=== PATIENT | male | born 2005 | race Caucasian/White ===

== ENCOUNTER 2025-08-01 15:56 | Emergency (ER) | payer MEDICAID ==
[~2025-08-01] VITALS: Ht 177.8 cm; Wt 101.0 kg
[2025-08-01] MEDS: ALBUTEROL SULF 2.5 MG/0.5ML(0.5%) NEB SOLN NEB ONE (20:53)
[2025-08-01] MEDS: KETOROLAC TROMETH 30 MG/ML 1ML VIAL IM ONE (21:07)
[2025-08-01 21:08] VITALS: BP 109/68; PULSE 86; RESP 19; TEMP 99.8; O2SAT 98
[2025-08-01] MEDS: ACETAMINOPHEN 500 MG TAB or CAP PO ONE (21:08)
--- NOTE | 2025-08-01 21:29 | ED.PDOC ---
History of Present Illness HPI Comments 19-year-old male presents with chief complaint of shortness of breath, lightheadedness, and sharp, substernal chest pain. Patient endorses on onset of symptoms, last night. Significant history for asthma and polysubstance abuse. Patient states on not using his albuterol inhaler prior to arrival. He also comments on having right shoulder pain whenever taking deep inspiration. No reported recent ailments, travel, injuries, sick contact, or further pertinent history or events. Denies on having any further acute symptoms. REVIEW OF SYSTEMS: General: No fever, no chills, HEENT: No neck pain, no blurred vision Cardiac: chest pain. Lightheadedness. No palpitations. Lungs: Shortness of breath, GI: No abdominal pain, no vomiting Musculoskeletal: No joint pain , no back pain Skin: No rash, no wound Neuro: No headache, no dizziness, no syncope PHYSICAL EXAM: General: Awake, alert and oriented. No acute distress. Skin: Skin in warm, dry and intact without rashes or lesions. HEENT: The head is normocephalic and atraumatic. Conjunctivae are clear without exudates or hemorrhage. Sclera is non-icteric. Neck: Normal range of motion. No JVD. Cardiac: Regular rate Respiratory: Left lower lobe wheezing. No signs of respiratory distress. No Stridor. Extremities: Upper and lower extremities are atraumatic in appearance without deformity. Neurological: The patient is awake, alert and oriented to person, place, and time with normal speech. Speech is clear. There is no facial asymmetry. Psychiatric: Appropriate mood and affect. Good judgement and insight. Chief Complaint: Asthma Time Seen by MD: 20:48 Reviewed Notes: Nurses Notes, Medications, Allergies Allergies: Coded Allergies: NO KNOWN ALLERGIES (Unverified , 02/18/13) Information Source: Patient Mode of Arrival: Ambulatory Severity: Moderate Timing: Hours Duration: Since onset Prehospital treatment: None Past Medical History PAST MEDICAL HISTORY: Asthma Surgical History: Denies all surgeries Social History Smoker: Other (Nicotine vape) Alcohol: Occasionally Drugs: Marijuana Lives In: Home Was a procedure done? Was a procedure done?: No Differential Dx Considerations may include: Differential diagnoses considered includebut arenot limited to acute Bronchitis, Asthma, COPD, Pneumothorax, PE, CHF, Pulmonary HTN, Anemia, CO Poisoning, Methemoglobinemia, Hyperventilation, Metabolic Acidosis, Pulmonary Edema, Pneumonia, ACS, Pericardial Tamponade, Anxiety, other X-Ray, Labs, Meds, VS Vital Signs Date Time Temp Pulse Resp B/P (MAP) Pulse Ox O2 Delivery O2 Flow Rate FiO2 08/01/25 21:08 99.8 86 19 109/68 (82) 98 99.8 08/01/25 21:08 86 19 98 Room Air 08/01/25 20:53 18 98 Room Air* 0 21 08/01/25 15:57 97.9 116 18 133/90 95 97.9 Lab Test 08/01/25 20:52 Range/Units D-Dimer, Quantitative < 0.19 0.0-0.49 mg/L FEU Troponin I High Sensitivity < 3 L </=54 ng/L Current Medications Medications (Trade) Dose Ordered Sig/Dara Route Start Time Stop Time Status Last Admin Ketorolac Tromethamine (Toradol Injection) 30 mg ONCE ONCE IM 08/01/25 20:45 08/01/25 20:46 DC 08/01/25 21:07 Acetaminophen (Tylenol Tablet Or Capsule) 1,000 mg ONCE ONCE PO 08/01/25 20:45 08/01/25 20:46 DC 08/01/25 21:08 Albuterol (Ventolin Medneb) 5 mg ONCE ONCE NEB 08/01/25 20:45 08/01/25 20:46 DC 08/01/25 20:53 PATIENT: KRISTINE SAVAGE DACCT: [id number]: [id number] : 2005 LOC: ER ROOM / BED: / AGE / SEX: 19 / M ADM STATUS: REG ER SERVICE 31 ORDERING PHYSICIAN: STACI KATZ MD PROCEDURE(s): CXR2 - CHEST TWO VIEWS ROUTINE REASON: Chest pain ORDER NUMBER(s): [id number], ACCESSION NUMBER(s): [id number] CHEST RADIOGRAPH Indication: Chest pain Technique: Frontal and lateral view of the chest was obtained Comparison: None FINDINGS: Lines and Tubes: None Lungs: Clear Pleura: No effusion. No pneumothorax. Cardiomediastinal contours: Unremarkable Bones: Unremarkable IMPRESSION: No evidence of acute disease. ATED BY: TE HAYES MD DICTATED DATE/TIME: 08/01/252154 SIGNED BY: TE HAYES MD SIGNED DATE/TIME: 08/01/252154 Time of 1ST Reevaluation: 20:48 Reevaluation 1ST: Unchanged Patient Education/Counseling: Need For Follow Up Family Education/Counseling: No Family Present SEPSIS Sepsis Screen Date sepsis recognized/suspect: Aug 01, 2025 Time Sepsis recognized/suspect: 1600 Recent Procedure: No On Antibiotic Therapy: No Respiratory Rate >20: No Heart Rate >90: Yes Temp<36 C (96.8 F) or >38.3 C: No SBP <90 or MAP <65 mmHG: No New Acute Mental Status Change: No Is the patient on CPAP, BIPAP,: No Physician Orders Chest Two Views Routine (08/01/25 20:32) Electrocardigram (08/01/25 20:32) Vital Signs Date Time Temp Pulse Resp B/P (MAP) Pulse Ox O2 Delivery O2 Flow Rate FiO2 08/01/25 21:08 99.8 86 19 109/68 (82) 98 99.8 08/01/25 21:08 86 19 98 Room Air 08/01/25 20:53 18 98 Room Air* 0 21 08/01/25 15:57 97.9 116 18 133/90 95 97.9 Medications Medications Dose Ordered Sig/Dara Route Start Time Stop Time Status Last Admin Dose Admin Acetaminophen 1,000 mg ONCE ONCE PO 08/01/25 20:45 08/01/25 20:46 DC 08/01/25 21:08 Albuterol 5 mg ONCE ONCE NEB 08/01/25 20:45 08/01/25 20:46 DC 08/01/25 20:53 Ketorolac Tromethamine 30 mg ONCE ONCE IM 08/01/25 20:45 08/01/25 20:46 DC 08/01/25 21:07 Departure 1 Departure Time of Disposition: 23:17 Impression: Primary Impression: Chest pain Additional Impression: Shortness of breath Disposition: 01 HOME / SELF CARE / HOMELESS Condition: Stable Additional Instructions: ED DISCHARGE INSTRUCTIONS Instructions: Please read all instructions provided in this packet carefully. Although you have been discharged from the Emergency Department, this does not mean that you have a "clean bill of health". No definitive diagnosis for your symptoms has been made today. It is possible that you are in the process of developing a serious illness. This is why you must return to the ED without fail if any new or worsening symptoms (especially if your symptoms include chest pain, trouble breathing, abdominal pain, fever, headache, confusion, trouble seeing, or trouble walking) It is also very important that you see a primary care provider (PCP) within the next 3-5 days to follow up. If you are unable to get an appointment, return to the ED for re-evaluation. SHORTNESS OF BREATH EDUCATION Shortness of breath has many causes. Sometimes conditions such as anxiety can lead to shortness of breath. Some people get mild shortness of breath when they exercise. Trouble breathing also can be a symptom of a serious problem, such as asthma, lung disease, emphysema, heart problems, and pneumonia. If your shortness of breath continues, you may need tests and treatment. Watch for any changes in your breathing and other symptoms. Follow-up care is a zeng part of your treatment and safety. Be sure to make and go to all appointments, and call your doctor if you are having problems. It's also a good idea to know your test results and keep a list of the medicines you take. How can you care for yourself at home? Do not smoke or allow others to smoke around you. If you need help quitting, talk to your doctor about stop-smoking programs and medicines. These can increase your chances of quitting for good. Get plenty of rest and sleep. Take your medicines exactly as prescribed. Call your doctor if you think you are having a problem with your medicine. Find healthy ways to deal with stress. Exercise daily. Get plenty of sleep. Eat regularly and well. When should you call for help? Call 911 anytime you think you may need emergency care. For example, call if: You have severe shortness of breath. You have symptoms of a heart attack. These may include: Chest pain or pressure, or a strange feeling in the chest. Sweating. Shortness of breath. Nausea or vomiting. Pain, pressure, or a strange feeling in the back, neck, jaw, or upper belly or in one or both shoulders or arms. Lightheadedness or sudden weakness. A fast or irregular heartbeat. After you call 911, the demolition hammer operator may tell you to chew 1 adult-strength or 2 to 4 low-dose aspirin. Wait for an ambulance. Do not try to drive yourself. Call your doctor now or seek immediate medical care if: Your shortness of breath gets worse or you start to wheeze. Wheezing is a high- pitched sound when you breathe. You wake up at night out of breath or have to prop your head up on several pillows to breathe. You are short of breath after only light activity or while at rest. Watch closely for changes in your health, and be sure to contact your doctor if: You do not get better over the next 1 to 2 days. Credits for Shortness of Breath: Care Instructions Current as of: April 22, 2024 Author: [email or web address] Staff e-Prescriptions Ibuprofen (Ibuprofen) 600 Mg Tab 1 TAB PO TID for 5 Days, #15 TAB Prov: STACI KATZ MD 08/01/25 Albuterol Sulfate (VENTOLIN MDI) 90 Mcg Ih 90 MCG IN QID for 20 Days, #1 INH Prov: STACI KATZ MD 08/01/25 Comments MDM: 19-year-old male who presented with shortness of breath and chest pain. EKG negative for signs of ischemia. High sensitivity troponin negative. CXR shows no acute process. Presentation not suggestive of acute coronary syndrome, pulmonary embolism or aortic dissection. Patient improved at time of discharge. Patient has not been hypoxic, in respiratory distress or dyspneic during the ED observation. Patient able to ambulate without difficulty. Patient felt stable for discharge to follow up with PCP promptly. Patient advised to return to the ED with any new, worsening or concerning symptoms or inability to follow up with PCP. Extensive evaluation was performed in attempt to identify or rule out: (See differential diagnosis section) The following tests were ordered, and results were reviewed by me and discussed with patient: (See diagnostic results section) The following test were independently interpreted by me: EKG I reviewed and agreed with the following test results read by other providers: Chest x-ray Decision regarding hospitalization or escalation of hospital level of care: Risks and benefits of admission for further treatment of patient's condition was considered however due to patient's stable condition patient will be discharged to follow up closely or return to care for worsening of condition or inability to follow up. Critical Care Note Critical Care Time?: No Stability Stability form required: No Heart Score Heart Score: Heart Score Response (Comments) Value History N/A 0 EKG N/A 0 Age N/A 0 Risk Factors N/A 0 Troponin N/A 0 Total 0 I personally scribed for STACI KATZ MD ([email or web address]) on 08/01/25 at 21:29. Electronically submitted by Kailash Reyes ([email or web address]). I personally scribed for STACI KATZ MD ([email or web address]) on 08/01/25 at 21:31. Electronically submitted by Kailash Reyes ([email or web address]). STACI KATZ MD Aug 01, 2025 21:29
--- NOTE | 2025-08-01 21:57 | DVH ---
CHEST RADIOGRAPH Indication: Chest pain Technique: Frontal and lateral view of the chest was obtained Comparison: None FINDINGS: Lines and Tubes: None Lungs: Clear Pleura: No effusion. No pneumothorax. Cardiomediastinal contours: Unremarkable Bones: Unremarkable IMPRESSION: No evidence of acute disease.
[2025-08-01] MEDS ORDERED: IBUP-1454 PO (23:18)
[2025-08-01] MEDS ORDERED: ALBUAER3 IN (23:18)
== END 2025-08-01 23:25 | disposition home or self-care (01) ==
LOC: ER 15:56
DX: R07.2 Precordial pain (principal); R06.02 Shortness of breath; J45.909 Unspecified asthma, uncomplicated; F17.290 Nicotine dependence, other tobacco product, uncomplicated; Z79.899 Other long term (current) drug therapy
CPT/HCPCS: 36415; 71046; 84484; 85379; 94640; 96372; 99284; J1885